=== PATIENT | female | born 1980 | race Caucasian/White ===

== ENCOUNTER 2019-07-07 01:57 | Inpatient (IN) | payer SELFPAY ==
[2019-07-07] MEDS ORDERED: Ketamine 50 MG/ML (10ML VIAL) ONE (02:20)
[2019-07-07 02:23] LABS: Actual Bicarbonate (HCO3a) 19.1 mEq/L (22-28); Analyzer IN Cardio ER; Base Excess (BEa) -4.7 mEq/L (-2.0 to +3.0); CO2 Tension 31.6 mmHg (35.0-45.0); Calcium, Ionized 1.09 mmol/L (1.12-1.30); Carboxyhemoglobin (COHb) 0.3 gm% (0.0-3.0); Hemoglobin (Hb) 12.1 g/dL (12.0-16.0); O2 Tension (PaO2) 181.4 mmHg (80.0-100.0); Potassium - ABG Lab 3.47 mmol/L (3.70-5.30)
[2019-07-07 02:24] LABS: Puncture Site RRA
--- NOTE | 2019-07-07 02:27 | PDOC.FPRHP ---
- History of Present Illness Chief Complaint: Suicide Attempt History of Present Illness: Pt is a 39 yo female who presents on transfer secondary to a suicide attempt by ingesting seroquel, lamotrigene. She had an argument with her boyfriend which prompted the overdose. EMS was called, unsure who called, and subsequently pt was intubated due to GCS 9 and difficulty protecting her airway. Initial EKG revealed a QTc 516. She was given Mg, sodium bicarb, naloxone, 2 L NS. Repeat EKG in the ED revealed an improvement in QTc. Otherwise unable to gather history from patient due to mental status/intubation. - Allergies/Adverse Reactions Allergies Allergy/AdvReac Type Severity Reaction Status Date / Time No Known Allergies Allergy Unverified 07/07/19 15:57 - Home Medications Medication Instructions Recorded Confirmed Type No Known 07/07/19 07/07/19 History - History PMHx: unobtainable PSHx: unobtainable FHx: unobtainable Social: unobtainable - Review of Systems ROS unobtainable: due to mental status - Vital signs BP: 101/69 HR: 90 RR: 14 Tmax: 99.1 Pox: 100% on vent Wt: 79 kg - Physical Exam -Constitutional: pt intubated HEENT: conjunctiva clear -HEENT: old laceration repair about 4 cm in length to R forhead in hair Neck: trachea midline, no JVD Heart: RRR, normal S1/S2, no edema Lungs: CTAB, good air movement Abdomen: soft, bowel sounds present -Neurological: pupils pinpoint, reactive to light Skin: no rash/lesions, capillary refill <2 seconds Heme/Lymphatic: no purpura, no petechia -Psychiatric: unable to obtain FMR H&P: Results - Labs Result Diagrams: 07/07/19 06:08 Lab results: ABG pH 7.40 (7.35-7.45) 07/07/19 02:15 ABG pCO2 31.6 mmHg (35.0-45.0) L 07/07/19 02:15 ABG pO2 181.4 mmHg (80.0-100.0) H 07/07/19 02:15 - Radiology Interpretation Chest x-ray Status: image reviewed by me Additional comment: no acute processes FMR H&P: A/P - Problem List (1) QT prolongation Current Visit: Yes Status: Acute Code(s): R94.31 - ABNORMAL ELECTROCARDIOGRAM [ECG] [EKG] (2) Suicide attempt Current Visit: Yes Status: Acute - Plan Pt is a 39 yo here for SI, otherwise unable to obtain history: # Suicide Attempt w/ Seroquel, Lamotrigine Poison control contacted and recommend EKGs q6h, keep mg WNL, and supportive care. They will check back in to assess pt. Pt will likely be sedated for some time due to seroquel but recommended extubation as soon as pt mental status improves. - sedation protocol initiated - CM consulted - EKG q6h - monitor QT - NPO - brain CT read pending # QT Prolongation - as above Fluids: LR 100 mls/hr Diet: NPO VTE: Lovenox Code: Full Dispo: Admit to inpatient CCU FMR H&P: Upper Level - Pertinent history 39 year female presents intubated from outside ED after ingesting 8 of the 100 mg seroquel and an unknown amount of lamotrigene. History obtained from EMS, ED physician, and nurses. Overdose was intentional. She had argument with her boyfriend. She was noted to have QTc of 516 in outside ED. Patient received NaHCO3 and 2g of Mg. QTc has decreased to 495 on most recent EKG. Poison control notified. - Pertinent findings General: Sedated and on ventilator. HEENT: MMM. Pinpoint pupils, reactive to light Card: RRR, no murmur Resp: CTA bilaterally, sedated and on ventilator Abdom: Soft, nondistended Ext: No swelling or cyanosis Neuro: Unable to do adequate neuro exam given sedation Skin: 4 cm forehead laceration, glued together - Plan Date/Time: 07/07/19225 ILeslie, have evaluated this patient and agree with findings/plan as outlined by music internship resident. Pertinent changes/additions are listed here. Acute toxic encephalopathy 2/2 seroquel overdose - Overdose on seroquel 8 of the 100 mg tablets - Possible TCA overdose (noted on UDS) - Amphetamine positive - EKG with QTc 516 --> 495 - Repeat EKG q6h per Poison Control; if QTc not downtrending at next check, then call Poison Control for further recs - Patient received NaHCO and Mg in ED - Intubated for GCS of 9 and unable to protect airway Suicide attempt - [facility] consult when medically stable Prolonged QT - QTc 516 --> 495 - Repeat EKG pending Amphetamine abuse DVT PPX: Lovenox Code Status: Full Dispo: Admit to CCU. Anticipate LOS >48 hours. Addendum - Attending - Attending Attestation Date/Time: 07/07/19 1820 I personally evaluated the patient and discussed the management with Dr. Dumont /Cathy I agree with the History, Examination, Assessment and Plan documented above with any addition or exceptions noted below. See my dictated note for details. Doc # [id number]
[2019-07-07 02:54] LABS: Amphetamine Detected (NotDetected); Barbiturates Screen Not Detected (NotDetected); Benzodiazepine Screen Not Detected (NotDetected); Cocaine Metabolite Screen Not Detected (NotDetected); Medtox Control Line Valid? VALID (VALID); Medtox Reader # READER 4; Methadone Not Detected (NotDetected); Methamphetamine Not Detected (NotDetected); Opiate Screen Not Detected (NotDetected); Oxycodone Screen Not Detected (NotDetected); Phencyclidine (PCP) Not Detected (NotDetected); THC/Cannabinoid Screen Not Detected (NotDetected); Tricyclic Screen Detected (NotDetected)
[2019-07-07] MEDS ORDERED: Dextrose 5 % And 0.9 % NaCl 1,000 ML IV SCH (03:15)
[2019-07-07 03:20] VITALS: BMI 26.4
[2019-07-07] MEDS ORDERED: fentaNYL Citrate/PF 2,000 MCG in Sodium Chloride 0.9% 60 ML IV SCH (03:54)
[2019-07-07] MEDS ORDERED: Fentanyl BOLUS 250 ML IVPB PRN (03:54)
[2019-07-07] MEDS ORDERED: Lorazepam 2 MG/ML VIAL SLOW IVP PRN (03:54)
[2019-07-07] MEDS ORDERED: DISCONTINUE PREVIOUS NARCOTIC PAIN MEDICATIONS AND BENZODIAZEPINES FS SCH (03:54)
[2019-07-07] MEDS ORDERED: Propofol 1,000 MG/100 ML VIAL IV PRN (03:54)
[2019-07-07] MEDS ORDERED: Morphine 2 MG/ML SYRINGE SLOW IVP PRN (03:54)
[2019-07-07] MEDS ORDERED: Propofol BOLUS 1,000 MG/100 ML VIAL IV PRN (03:54)
[2019-07-07] MEDS ORDERED: Lactated Ringer's 1,000 ML IV SCH (04:00)
[2019-07-07] MEDS ORDERED: Ventilator Sedation Protocol 1 EACH FS SCH (04:00)
--- NOTE | 2019-07-07 05:15 | HP ---
TIME OF SERVICE: 0400 hours. CHIEF COMPLAINT: Suspected Seroquel overdose. HISTORY OF PRESENT ILLNESS: I have discussed the case and management of this patient with Dr. Dumont and Cathy and reviewed all of their documentation. I agree with what is noted in their H and P unless otherwise stated in the following attestation. In summary, Ms. Kent is a 39-year-old female with no known past medical history, presented as a transfer from [facility] ER after intentionally taking eight 100 mg of Seroquel tablets and an unspecified amount of lamotrigine at approximately 2100 hours on 07/06/2019. History is limited due to the fact that the patient is currently intubated and sedated. There is no family available with the patient at this time to provide additional history. Per ER report, the patient was having a verbal altercation with her significant other this evening, which prompted her to intentionally take an excessive amount of her Seroquel and Lamictal. No additional history is able to be obtained at that time due to the previously mentioned confounding factors. Per ER record, she has no chronic medical problems. PAST SURGICAL HISTORY: An appendectomy and tubal ligation. SOCIAL HISTORY: No alcohol, tobacco, or illicit substance use. Please refer to the resident's history and physical for additional past medical, surgical, social, and family history. PHYSICAL EXAMINATION: VITAL SIGNS: Blood pressure 114/80, pulse 72, respiratory rate of 14, pulse ox 100% on 40% FiO2 with 5 cm of water PEEP and 10 cm of water of inspiratory pressure support. GENERAL: Intubated, sedated, nonresponsive, will locate to noxious stimuli. HEENT: There is a scalp laceration, which per the patient's medical record occurred on 06/29/2019, after she fell walking upstairs. Pupils are constricted and responsive to light. Additional exam findings cannot be assessed due to the patient's current sedation level. CARDIOVASCULAR: Normal rate, regular rhythm. Pulses full and equal throughout. PULMONARY: Lungs; clear to auscultation bilaterally. PERTINENT LABORATORY FINDINGS: Arterial blood gas taken at 0200 hours, pH 7.4, pCO2 of 31.6, pO2 of 181.4, bicarb 19.1, potassium of 3.2. Urine drug screen was positive for tricyclics and amphetamines. I reviewed the patient's prescription monitoring program chart and the patient was not identified within the system. EKG; initial EKG performed in [facility] is not currently available for review, but ER report documents QTc interval of 516 with other nonspecific findings. I reviewed the patient's EKG performed in the ER through [facility], showed an improved QTc interval of 495. EKG was otherwise unremarkable. Chest x-ray personally reviewed by me showed appropriate placement of the endotracheal tube. CT brain report reviewed by me. No acute intracranial processes. ASSESSMENT: Ms. Kent is a 39-year-old female, who presented with acute intentional overdose of Seroquel and Lamictal. She was intubated at [facility] ER due to worsening mentation and concern for inability to protect her airway. Poison Control has been contacted at this time and they have recommended supportive care with frequent repeat EKGs to evaluate for QTc intervals. We will continue to monitor magnesium levels. The patient is currently requiring sedation with propofol, but we will attempt to wean sedation in the morning to see if the patient can be extubated at that time. Additional plans are as follows; 1. Intentional Seroquel and lamotrigine overdose. Monitoring with q.6 hour EKGs and serial blood draws to monitor electrolytes. So far, the patient has received 3 L of sodium chloride, one amp of sodium bicarb and 2 g of IV magnesium. The patient has also received a combination of 300 mg of ketamine and 150 mcg of fentanyl. We will attempt to obtain additional history once the patient becomes more alert and responsive. We will also follow up with Poison Control as the patient progresses for additional recommendations and changes in management of the patient's plan. Continue ventilator support at this time. The patient is receiving minimal ventilatory support and again is primarily intubated due to concern for decreased mental status and inability to protect her airway. The patient will also need MR consult once she has been medically cleared. 2. Chronic medical problems per resident note. 3. Disposition: Length of stay in the inpatient critical care unit likely greater than 2 midnights. Approximately 40 minutes of critical care time was spent in direct care of this patient by me. Job ID: [id number] MTDD
[2019-07-07] MEDS ORDERED: Potassium Chloride 20 MEQ/100 ML PREMIX BAG IVPB SCH (07:30)
[2019-07-07 07:58] LABS: Anion Gap 12 mmol/L (10-20); BUN (Urea Nitrogen) 12 mg/dL (7.0-18.7); Calc. Creatinine Clearance 137 mL/min (70-130); Calcium 7.9 mg/dL (7.8-10.44); Carbon Dioxide 21 mmol/L (22-29); Chloride 111 mmol/L (98-107); Estimated GFR-MDRD Greater than 90; Glucose 84 mg/dL (70-105); Potassium 3.6 mmol/L (3.5-5.1); Sodium 140 mmol/L (136-145)
[2019-07-07] MEDS ORDERED: Potassium Chloride 20 MEQ in Premix Bag 1 BAG IVPB SCH (08:00)
[2019-07-07] MEDS ORDERED: Famotidine/PF 20 mg/2ml Vial SLOW IVP SCH (09:00)
[2019-07-07] MEDS: Enoxaparin Sodium 40 MG/0.4 ML SYRINGE SC SCH (09:10)
[2019-07-07] MEDS ORDERED: Potassium Chloride 20 MEQ in Sodium Chloride 0.9% 250 ML 250 ML IVPB ONE (09:30)
[2019-07-07 11:35] LABS: Syphilis Antibody Nonreactive (Nonreactive); Syphilis Antibody Index 0.07 S/CO (<1.00 Non-Reactive)
[2019-07-07 11:36] LABS: HBSAB Concentration 1.51 mIU/mL; HBSAg Index 0.23 S/CO (0-0.99); HIV (1/2) Antibody/Antigen Non-Reactive (NonReactive); HIV 1/2 INDEX 0.12 S/CO (<1.00); Hep B Surf AB Non-Reactive (NonReactive); Hep B Surf Ag Non-Reactive S/CO (NonReactive); Hep C IgG Ab Non-Reactive (NonReactive); Hep C Index 0.15 S/CO (0-0.79)
[2019-07-07] MEDS ORDERED: Potassium Chloride 20 MEQ TAB PO SCH (12:30)
--- NOTE | 2019-07-07 12:53 | CON ---
DATE OF CONSULTATION: 07/07/2019 SERVICE: Pulmonary Medicine. REASON FOR CONSULTATION: ICU patient. HISTORY OF PRESENT ILLNESS: The patient is a 39-year-old white female with past medical history significant for mood disturbances. Ultimately, she was in her usual state of health when she intentionally overdosed on some medications. Apparently, she took a little bit of Seroquel and was somnolent. She was intubated to protect her airway at an outside facility. Overnight, these medicines wore off her system, and she required a little bit of propofol to maintain comfort. This morning, on a sedation holiday, she was cool, calm, collected, and breathing comfortably on 21% oxygen. She denies having any fevers. There are no reported events overnight. Otherwise, she is returning to her usual state of health so far as I am aware. PAST MEDICAL HISTORY: Unknown. PAST SURGICAL HISTORY: 1. Appendectomy. 2. Tubal ligation. FAMILY HISTORY: Noncontributory. SOCIAL HISTORY: Unknown. ALLERGIES: NO INFORMATION AVAILABLE. MEDICATIONS: List of her inpatient medications was reviewed and heavily modified. REVIEW OF SYSTEMS: Cannot be obtained as the patient is currently intubated and sedated. PHYSICAL EXAMINATION: VITAL SIGNS: Afebrile, pulse 79, blood pressure 111/75, respirations 16, saturation 100%, currently on 21% FiO2 delivered via pressure support ventilation at 5/5. GENERAL: The patient is awake and alert, in no apparent distress. LUNGS: Excellent air entry. No prolonged expiratory phase. Wheezing is present. HEART: Normal rate, regular. ABDOMEN: Soft, nontender, and nondistended. Bowel sounds are positive. MUSCULOSKELETAL: No cyanosis or clubbing. There is no pitting in the bilateral lower extremities. NEUROLOGIC: Grossly nonfocal. LABORATORY DATA: WBC 9.5, hemoglobin 12.3, and platelets 267,000. PH 7.40, pCO2 of 32, pO2 of 181. At that time, she is on 40% oxygen. Potassium 3.6. Basic metabolic profile is otherwise unremarkable. Magnesium is normal. Troponin is below the assay limit. Liver function studies were previously unremarkable. TSH falls within normal limits, and she has a negative test. Urinalysis has a little bit of pyuria, but only 1+ bacteria. Nitrites are negative, though leukocyte esterase is just trace. Toxicology is positive for amphetamines and TCAs. HIV 1 and 2 are nonreactive, hepatitis serologies are negative. IMAGING STUDIES: CT of the brain demonstrates no acute intracranial abnormality. Chest x-ray demonstrates endotracheal tube is in good position. Enteric catheter courses midline, well below the level of the diaphragm. There are no infiltrates or effusions present. ASSESSMENT: 1. Respiratory failure secondary to inability to protect airway. 2. Metabolic encephalopathy. 3. Intentional drug overdose. 4. Abnormal amphetamine screen. DISCUSSION AND PLAN: The patient is doing great from a respiratory standpoint. We will put her on a spontaneous breathing trial. At the end of it, if she meets criteria, extubation will be considered. If she does well, she can transition out of the ICU to the floor. Pulmonary will follow in this location. CRITICAL CARE TIME: 30 minutes. Job ID: [id number]
--- NOTE | 2019-07-07 22:54 | EKG ---
Test Reason : Blood Pressure : / mmHG Vent. Rate : 084 BPM Atrial Rate : 084 BPM P-R Int : 136 ms QRS Dur : 086 ms QT Int : 416 ms P-R-T Axes : 071 054 064 degrees QTc Int : 491 ms Normal sinus rhythm Prolonged QT Abnormal ECG When compared with ECG of 07-JUL-2019 02:23, (Unconfirmed) T wave inversion no longer evident in Anterior leads Confirmed by BYRON HINTON, SBrianne ([id number]) on 07/07/2019 10:54:15 PM Referred By: JUMA Confirmed By:DR. Iliana MATTHEWS MD
[2019-07-08] MEDS: Enoxaparin Sodium 40 MG/0.4 ML SYRINGE SC SCH (08:30)
--- NOTE | 2019-07-08 08:32 | PDOC.FM ---
- Subjective Subjective: Reports good rest overnight, is asymptomatic without new complaint no cp/palpitations, no sob, no cough - Objective Vital Signs & Weight: Vital Signs (12 hours) Temp Pulse Ox 07/08/19 07:19 99.8 F H 07/08/19 07:08 98 07/08/19 04:00 100.0 F H Weight Weight 76.6 kg Most Recent Monitor Data Heart Rate from ECG 86 NIBP 101/63 NIBP BP-Mean 75 Respiration from ECG 14 SpO2 99 I&O: 07/07/19 07/08/19 07/09/19 06:59 06:59 06:59 Intake Total 126.6 1777.8 240 Output Total 1005 2565 Balance -878.4 -787.2 240 Result Diagrams: 07/07/19 06:08 Phys Exam - Physical Examination Constitutional: NAD HEENT: moist MMs, sclera anicteric Neck: supple, full ROM Respiratory: no wheezing, clear to auscultation bilateral Cardiovascular: RRR, no significant murmur Gastrointestinal: soft, non-tender Musculoskeletal: no edema, pulses present Neurological: non-focal, normal sensation Psychiatric: normal affect, A&O x 3 Skin: no rash, normal turgor Dx/Plan (1) QT prolongation Code(s): R94.31 - ABNORMAL ELECTROCARDIOGRAM [ECG] [EKG] Status: Acute (2) Suicide attempt Status: Acute - Plan Plan: Acute toxic encephalopathy 2/2 seroquel overdose A- encephalopathy is resolved. pt asymptomatic. Overdose on seroquel 8 of the 100 mg tablets. Possible TCA overdose (noted on UDS). EKG with QTc 516 --> 495. Patient received NaHCO and Mg in ED. s/p extubation P- will get repeat EKG, consult with poison control -likely [facility] call as pt gets medically cleared Suicide attempt - [facility] consult when medically stable Prolonged QT - QTc 516 --> 495. plan as above Amphetamine abuse - MD aware, correctional substance abuse counselor cessation DVT PPX: Lovenox Code Status: Full Addendum - Attending - Attending Attestation Date/Time: 07/08/19 1102 I personally evaluated the patient and discussed the management with Dr. Linarse. I agree with the History, Examination, Assessment and Plan documented above with any addition or exceptions noted below. ECG with QTc 432 this AM. Extubated. Plan for xfer to floor and eval by [facility].
[2019-07-08] MEDS ORDERED: FLU VACC QS2019-20(6MOS UP)/PF 60 MCG/0.5 ML SYRINGE IM ONE (09:00)
[2019-07-08] MEDS ORDERED: Prevnar 13-Val Conj/PF 0.5 ML SYRINGE IM ONE (09:00)
[2019-07-08] MEDS: Acetaminophen 325 MG TAB PO PRN (16:17)
[2019-07-09] MEDS: Enoxaparin Sodium 40 MG/0.4 ML SYRINGE SC SCH (08:11)
--- NOTE | 2019-07-09 08:24 | PDOC.FM ---
- Subjective Subjective: doing well, reports remembering more and more of the episode. Currently denies SI, denies prior attempt. no fever/chills, no palpitations, no sob - Objective Vital Signs & Weight: Vital Signs (12 hours) Temp Pulse Resp BP Pulse Ox 07/09/19 07:47 98.0 F 82 16 100/66 07/09/19 00:00 98.4 F 72 16 96/55 L 96 07/08/19 22:13 97 Weight Weight 76.6 kg Most Recent Monitor Data Heart Rate from ECG 94 NIBP 99/65 NIBP BP-Mean 76 Respiration from ECG 17 SpO2 99 I&O: 07/08/19 07/09/19 07/10/19 06:59 06:59 06:59 Intake Total 1777.8 1360 Output Total 2565 200 Balance -787.2 1160 Result Diagrams: 07/07/19 06:08 Phys Exam - Physical Examination Constitutional: NAD HEENT: moist MMs, sclera anicteric Neck: no nodes, no JVD Respiratory: no wheezing, clear to auscultation bilateral Cardiovascular: RRR, no significant murmur Gastrointestinal: soft, non-tender Musculoskeletal: no edema, pulses present Neurological: non-focal, normal sensation Psychiatric: normal affect, A&O x 3 Dx/Plan (1) QT prolongation Code(s): R94.31 - ABNORMAL ELECTROCARDIOGRAM [ECG] [EKG] Status: Acute (2) Suicide attempt Status: Acute - Plan Plan: Suicide attempt A- denies ideation, intention, or plan at this time. [facility] has pt on [place] waitlist as they were not able to get a hold of family to help sign safety plan P- CM will be in touch with [facility] today for potential outreach to family etc. Pt may be stable to [place] [facility]. Otherwise we will plan to transfer to [place]. Acute toxic encephalopathy and prolonged QT 2/2 seroquel overdose -resolved, medically cleared Amphetamine abuse -MD aware, patent counsel cessation DVT PPX: Lovenox Code Status: Full Addendum - Attending - Attending Attestation Date/Time: 07/09/19 8402 I personally evaluated the patient and discussed the management with Dr. Linares. I agree with the History, Examination, Assessment and Plan documented above with any addition or exceptions noted below.
[2019-07-09 11:54] VITALS: BP 103/59; TEMP 100.4
[2019-07-09] MEDS: Acetaminophen 325 MG TAB PO PRN (12:16)
--- NOTE | 2019-07-10 10:21 | DIS ---
DATE OF ADMISSION: 07/07/2019 DATE OF DISCHARGE: 07/09/2019 DISCHARGE ATTENDING: Giovanni Mckinney MD RESIDENT: Adan Linares MD I personally saw the patient for a total of 2 days. CONSULTATIONS: 1. Case Management. 2. [facility]. 3. Rodney Ragland MD. 4. Poison Control. PROCEDURES: 1. On 07/06, intubation and extubation. 2. Several EKGs with downtrended QTc's, from 516 down to 432. DISCHARGE MEDICATIONS: None. DISCONTINUED MEDICATIONS: Seroquel, and Lamictal. PRIMARY DIAGNOSIS: Intentional overdose on Seroquel of suicide attempt encephalopathy and prolonged QT interval. SECONDARY DIAGNOSIS: Amphetamine abuse. HISTORY OF PRESENT ILLNESS AND HOSPITAL COURSE: This is a 39-year-old female, who presented as a transfer from [facility] after intentionally overdosing on Seroquel, possibly tricyclics. On presentation to our emergency room, the patient was not guarding her airway and was therefore intubated. She quickly extubated and recovered mental function. However, her memory of the overdose was suboptimal during this hospitalization. Of note, her EKG showed initial QT prolongation with a QTc of 516. Poison Control was consulted who recommended serial EKGs that showed downtrending QTc. This was done until QTc downtrended to 432. The patient was asymptomatic after extubation, except for a mild sore throat. [facility] was called for psychiatric evaluation. They deemed the patient would be best served in an inpatient psychiatric unit for now and for further evaluation and so arrangements were made and patient was transferred to [facility]. DISPOSITION: Stable. DISCHARGE INSTRUCTIONS: 1. Location: [facility]. 2. Activity: As tolerated. 3. Diet: Regular. 4. Followup: Follow up with primary care physician in 2 weeks and per [facility]'s recommendations. Job ID: [id number]
== END 2019-07-09 13:27 | disposition short-term general hospital (02) | DRG 917 ==
LOC: ERS 01:57 → CCU 02:30 → T4-B 07-08 17:19
PROVIDERS: ADMIT Family Medicine; ATTEND Family Medicine
PROC: 0BH17EZ Insertion of Endotracheal Airway into Trachea, Via Natural or Artificial Opening (ICD-10-PCS; principal; 2019-07-07)
PROC: 5A1935Z Respiratory Ventilation, Less than 24 Consecutive Hours (ICD-10-PCS; 2019-07-07)
DX: T43.592A Poisoning by other antipsychotics and neuroleptics, intentional self-harm, initial encounter (principal); J96.90 Respiratory failure, unspecified, unspecified whether with hypoxia or hypercapnia; G92 Toxic encephalopathy; Z98.51 Tubal ligation status; R94.31 Abnormal electrocardiogram [ECG] [EKG]; F15.10 Other stimulant abuse, uncomplicated
CPT/HCPCS: 36415; 80048; 80306; 82805; 83735; 86706; 86780; 86803; 87340; 87389; 93005; 93010; 94002; 96374; J1650; J2704; J3480; J7050; S0028